=== PATIENT | male | born 1955 | race Two or more races ===

== ENCOUNTER 2021-07-08 12:58 | Inpatient (IN) | payer OTHER ==
[~2021-07-08] VITALS: Ht 175.3 cm; Wt 98.0 kg
[2021-07-08] MEDS ORDERED: INSLAN SQ (14:36)
[2021-07-08] MEDS ORDERED: CARV3 PO (14:36)
[2021-07-08] MEDS ORDERED: ALBU8HFA IH (14:36)
[2021-07-08] MEDS ORDERED: DULO30CA89 PO (14:36)
[2021-07-08] MEDS ORDERED: ISOS30TA92 PO (14:36)
[2021-07-08] MEDS ORDERED: LOPE2 PO (14:36)
[2021-07-08] MEDS ORDERED: NITR0.4T52 SL (14:36)
[2021-07-08] MEDS ORDERED: HYDR50CA9 PO (14:36)
[2021-07-08] MEDS ORDERED: ACET-66 PO (14:36)
[2021-07-08] MEDS ORDERED: ASPI-1444 PO (14:36)
[2021-07-08] MEDS ORDERED: TRAZ-252 PO (14:36)
[2021-07-08] MEDS ORDERED: ATOR40TA28 PO (14:36)
[2021-07-08] MEDS ORDERED: CLOP75TA60 PO (14:36)
[2021-07-08] MEDS ORDERED: FLUO20CA36 PO (14:36)
[2021-07-08] MEDS ORDERED: OMEP20 PO (14:36)
[2021-07-08 15:01] LABS: BASOPHILS % (AUTO) 0.6 % (0.0-2.0); EOSINOPHILS % (AUTO) 0 % (1.0-6.0); HEMATOCRIT 43.7 % (41-53); HEMOGLOBIN 14.8 g/dL (13.5-17.5); LYMPHOCYTES # (AUTO) 0.9 K/uL (1.0-4.8); LYMPHOCYTES % (AUTO) 17.5 % (22.0-44.0); MEAN CORPUSCULAR HEMOGLOBIN 29.6 pg (26.0-34.0); MEAN CORPUSCULAR HGB CONC 33.9 G/dL (31.0-37.0); MEAN CORPUSCULAR VOLUME 88 fL (80-100); MONOCYTES # (AUTO) 0.6 K/uL (0.1-1.0); MONOCYTES % (AUTO) 11.3 % (2.0-9.0); NEUTROPHILS # (AUTO) 3.7 K/uL (1.8-7.7); NEUTROPHILS % (AUTO) 70.6 % (40.0-70.0); PLATELET COUNT (AUTO) 197 K/uL (150-450); RED CELL DISTRIBUTION WIDTH 13.7 % (11.5-14.5)
[2021-07-08 15:15] LABS: C-REACTIVE PROTEIN QUANT 0.06 mg/dL (0.00-0.30); CREATINE KINASE, TOTAL ONLY 62 U/L (39-308)
[2021-07-08] MEDS ORDERED: DEXAMETHASONE SOD PHOS 4 MG/ML 5 ML VIAL IVP ONE (15:15)
[2021-07-08] MEDS ORDERED: REMDESIVIR 200 MG in SODIUM CHLORIDE 0.9% 250 ML IV ONE (15:15)
[2021-07-08] MEDS ORDERED: ENOXAPARIN SODIUM 60 MG/0.6 ML PF SYRINGE SQ ONE (15:15)
[2021-07-08 15:17] LABS: B-TYPE NATRIURETIC PEPTIDE < 5 pg/mL (0-100)
[2021-07-08 15:18] LABS: ALBUMIN 3.7 g/dL (3.4-5.0); BILIRUBIN,TOTAL 0.4 mg/dL (0.1-1.0); CALCIUM, TOTAL 8.8 mg/dL (8.8-10.5); CREATININE 1.23 mg/dL (0.60-1.30); POTASSIUM 4.5 mmol/L (3.5-5.1); TOTAL PROTEIN, SERUM 8.2 g/dL (6.4-8.2)
[2021-07-08] MEDS ORDERED: ENOXAPARIN SODIUM 40 MG/0.4 ML PF SYRINGE SQ ONE (15:30)
[2021-07-08] MEDS ORDERED: DEXTROSE 50%-WATER 25 GM/50 ML SYRINGE IVP PRN ×2 (16:00→17:00)
[2021-07-08] MEDS ORDERED: INSULIN LISPRO 100 UNITS/ML SQ PRN (16:00)
[2021-07-08] MEDS ORDERED: INSULIN LISPRO 100 UNITS/ML SQ ONE (16:45)
[2021-07-08] MEDS ORDERED: ALBUTEROL SULFATE HFA 90 MCG/PUFF 8 GM INHALER IH PRN (17:00)
[2021-07-08] MEDS ORDERED: ONDANSETRON HCL 4 MG/2 ML VIAL IVP PRN (17:00)
[2021-07-08] MEDS ORDERED: ACETAMINOPHEN 325 MG TABLET PO PRN (17:00)
[2021-07-08] MEDS ORDERED: OxyCODONE HCL/ACETAMINOPHEN 5-325 MG TABLET PO PRN (17:00)
[2021-07-08] MEDS ORDERED: BENZONATATE 100 MG CAPSULE PO PRN (17:00)
[2021-07-08] MEDS ORDERED: SODIUM CHLORIDE 0.9% 1,000 ML IV ONE (17:00)
[2021-07-08 17:39] LABS: FERRITIN 157 ng/mL (26-388)
[2021-07-08 18:30] VITALS: BP 118/70
[2021-07-08] MEDS: INSULIN LISPRO 100 UNITS/ML SQ PRN ×2 (19:06→21:48)
[2021-07-08 20:42] VITALS: BP 121/68
[2021-07-08] MEDS ORDERED: INSULIN GLARGINE,HUM.REC.ANLOG 100 UNITS/ML SQ SCH (21:00)
[2021-07-08] MEDS: DOCUSATE SODIUM 100 MG CAPSULE PO SCH ×2 (21:00→21:44)
[2021-07-08] MEDS: FAMOTIDINE 20 MG TABLET PO SCH (21:44)
[2021-07-08] MEDS ORDERED: TraZODone HCL 50 MG TABLET PO ONE (23:30)
[2021-07-09] MEDS: HEPARIN SODIUM,PORCINE 5,000 UNITS/ML VIAL SQ SCH ×3 (00:20→16:22)
[2021-07-09 00:41] VITALS: BP 139/77
[2021-07-09 01:16] LABS: COVID AG,FIA SOURCE NASOPHARYNGEAL
[2021-07-09 04:23] VITALS: BP 129/92
[2021-07-09] MEDS: INSULIN LISPRO 100 UNITS/ML SQ PRN ×4 (05:58→21:46)
[2021-07-09 07:06] LABS: GLUCOMETER DEV NAME(LOC) 5S.2B; GLUCOSE,POINT OF CARE 376 MG/DL (70-110)
[2021-07-09 07:06] LABS: GLUCOMETER DEV NAME(LOC) 5S.2B; GLUCOSE,POINT OF CARE 284 MG/DL (70-110)
[2021-07-09 07:06] LABS: GLUCOMETER DEV NAME(LOC) 5S.2B; GLUCOSE,POINT OF CARE 381 MG/DL (70-110)
[2021-07-09 07:48] VITALS: BP 157/86
[2021-07-09] MEDS: DOCUSATE SODIUM 100 MG CAPSULE PO SCH ×2 (08:21→21:00)
[2021-07-09] MEDS: FAMOTIDINE 20 MG TABLET PO SCH ×2 (08:21→21:47)
[2021-07-09] MEDS: CLOPIDOGREL BISULFATE 75 MG TABLET PO SCH (08:21)
[2021-07-09] MEDS: ASPIRIN 81 MG CHEWABLE TABLET PO SCH (08:21)
[2021-07-09] MEDS: DEXAMETHASONE SOD PHOS 4 MG/ML VIAL IVP SCH (08:24)
[2021-07-09 09:22] LABS: ALANINE AMINOTRANSFERASE 30 U/L (12-78); ALBUMIN 3.3 g/dL (3.4-5.0); ALKALINE PHOSPHATASE 74 U/L (46-116); ANION GAP 10 mmol/L (8-16); ASPARTATE AMINOTRANSFERASE 21 U/L (15-37); BILIRUBIN,TOTAL 0.4 mg/dL (0.1-1.0); CALCIUM, TOTAL 8.5 mg/dL (8.8-10.5); CARBON DIOXIDE 24 mmol/L (22-29); CHLORIDE 98 mmol/L (98-107); CREATININE 0.96 mg/dL (0.60-1.30); GLOMERULAR FILTR. RATE CALC > 60 mL/min (>60); GLUCOSE,RANDOM 363 mg/dL (70-110); POTASSIUM 4.4 mmol/L (3.5-5.1); SODIUM SERUM 132 mmol/L (136-145); TOTAL PROTEIN, SERUM 7.3 g/dL (6.4-8.2); UREA NITROGEN, BLOOD 24 mg/dL (7-18)
[2021-07-09 11:04] VITALS: BP 139/72
[2021-07-09 15:07] VITALS: BP 169/94
[2021-07-09] MEDS ORDERED: REMDESIVIR 100 MG in SODIUM CHLORIDE 0.9% 250 ML IV SCH (16:00)
[2021-07-09] MEDS: REMDESIVIR 100 MG in SODIUM CHLORIDE 0.9% 250 ML IV SCH (17:44)
[2021-07-09 17:57] LABS: GLUCOMETER DEV NAME(LOC) 5S.2B; GLUCOSE,POINT OF CARE 348 MG/DL (70-110)
[2021-07-09 17:58] LABS: GLUCOMETER DEV NAME(LOC) 5S.2B; GLUCOSE,POINT OF CARE 311 MG/DL (70-110)
[2021-07-09 19:38] VITALS: BP 170/89
[2021-07-09] MEDS ORDERED: HydrOXYzine PAMOATE 50 MG CAPSULE PO PRN (21:00)
[2021-07-09] MEDS: INSULIN GLARGINE,HUM.REC.ANLOG 100 UNITS/ML SQ SCH (21:45)
[2021-07-09] MEDS: CARVEDILOL 3.125 MG TABLET PO SCH (21:47)
[2021-07-09] MEDS: ISOSORBIDE MONONITRATE 30 MG ER TABLET PO SCH (21:47)
[2021-07-09] MEDS: TraZODone HCL 100 MG TABLET PO SCH (22:14)
[2021-07-09] MEDS: DiphenhydrAMINE HCL 25 MG CAPSULE PO PRN (22:15)
[2021-07-10 04:07] VITALS: BP 116/78
[2021-07-10] MEDS: INSULIN LISPRO 100 UNITS/ML SQ PRN ×4 (06:26→20:14)
[2021-07-10 06:38] LABS: GLUCOMETER DEV NAME(LOC) 5S.2B; GLUCOSE,POINT OF CARE 367 MG/DL (70-110)
[2021-07-10 06:38] LABS: GLUCOMETER DEV NAME(LOC) 5S.2B; GLUCOSE,POINT OF CARE 295 MG/DL (70-110)
[2021-07-10 08:19] VITALS: BP 107/68
[2021-07-10] MEDS: ASPIRIN 81 MG CHEWABLE TABLET PO SCH (08:21)
[2021-07-10] MEDS: CARVEDILOL 3.125 MG TABLET PO SCH ×2 (08:22→20:16)
[2021-07-10] MEDS: DULoxetine HCL 30 MG CAPSULE PO SCH (08:23)
[2021-07-10] MEDS: CLOPIDOGREL BISULFATE 75 MG TABLET PO SCH (08:23)
[2021-07-10] MEDS: HEPARIN SODIUM,PORCINE 5,000 UNITS/ML VIAL SQ SCH ×3 (08:23→16:20)
[2021-07-10] MEDS: FAMOTIDINE 20 MG TABLET PO SCH ×2 (08:23→20:16)
[2021-07-10] MEDS: DEXAMETHASONE SOD PHOS 4 MG/ML VIAL IVP SCH (08:23)
[2021-07-10] MEDS: ISOSORBIDE MONONITRATE 30 MG ER TABLET PO SCH (08:23)
[2021-07-10] MEDS: DOCUSATE SODIUM 100 MG CAPSULE PO SCH ×2 (08:35→20:16)
[2021-07-10] MEDS ORDERED: INSULIN GLARGINE,HUM.REC.ANLOG 100 UNITS/ML SQ SCH (09:00)
[2021-07-10 11:33] VITALS: BP 110/53
[2021-07-10 12:28] LABS: GLUCOMETER DEV NAME(LOC) 5S.2B; GLUCOSE,POINT OF CARE 377 MG/DL (70-110)
[2021-07-10] MEDS: FLUoxetine HCL 10 MG CAPSULE PO SCH (12:28)
[2021-07-10 14:28] LABS: ALBUMIN 3.3 g/dL (3.4-5.0); BILIRUBIN,TOTAL 0.4 mg/dL (0.1-1.0); CALCIUM, TOTAL 8.9 mg/dL (8.8-10.5); CREATININE 1.22 mg/dL (0.60-1.30); POTASSIUM 5.2 mmol/L (3.5-5.1); TOTAL PROTEIN, SERUM 7.4 g/dL (6.4-8.2)
[2021-07-10] MEDS: REMDESIVIR 100 MG in SODIUM CHLORIDE 0.9% 250 ML IV SCH (18:03)
[2021-07-10 19:18] LABS: GLUCOMETER DEV NAME(LOC) 5S.2B; GLUCOSE,POINT OF CARE 346 MG/DL (70-110)
[2021-07-10 19:45] VITALS: BP 117/68
[2021-07-10] MEDS: INSULIN GLARGINE,HUM.REC.ANLOG 100 UNITS/ML SQ SCH (20:15)
[2021-07-10] MEDS: TraZODone HCL 100 MG TABLET PO SCH (20:16)
[2021-07-10] MEDS: DiphenhydrAMINE HCL 25 MG CAPSULE PO PRN (20:25)
[2021-07-10 23:31] VITALS: BP 116/60
[2021-07-11 03:43] LABS: GLUCOMETER DEV NAME(LOC) 5S.2B; GLUCOSE,POINT OF CARE 336 MG/DL (70-110)
[2021-07-11 04:25] VITALS: BP 125/72
[2021-07-11] MEDS: INSULIN LISPRO 100 UNITS/ML SQ PRN ×4 (06:03→22:23)
[2021-07-11 07:45] VITALS: BP 164/92
[2021-07-11] MEDS: DOCUSATE SODIUM 100 MG CAPSULE PO SCH ×2 (09:00→21:00)
[2021-07-11] MEDS ORDERED: INSULIN GLARGINE,HUM.REC.ANLOG 100 UNITS/ML SQ SCH ×2 (09:00→21:00)
[2021-07-11] MEDS: HEPARIN SODIUM,PORCINE 5,000 UNITS/ML VIAL SQ SCH ×4 (09:08→23:48)
[2021-07-11] MEDS: CARVEDILOL 3.125 MG TABLET PO SCH ×2 (09:09→22:15)
[2021-07-11] MEDS: ISOSORBIDE MONONITRATE 30 MG ER TABLET PO SCH (09:09)
[2021-07-11] MEDS: DEXAMETHASONE SOD PHOS 4 MG/ML VIAL IVP SCH (09:09)
[2021-07-11] MEDS: ASPIRIN 81 MG CHEWABLE TABLET PO SCH (09:09)
[2021-07-11] MEDS: FLUoxetine HCL 10 MG CAPSULE PO SCH (09:09)
[2021-07-11] MEDS: CLOPIDOGREL BISULFATE 75 MG TABLET PO SCH (09:10)
[2021-07-11] MEDS: FAMOTIDINE 20 MG TABLET PO SCH ×2 (09:10→22:16)
[2021-07-11] MEDS: DULoxetine HCL 30 MG CAPSULE PO SCH (09:10)
[2021-07-11 12:25] VITALS: BP 129/68
[2021-07-11 13:43] LABS: GLUCOMETER DEV NAME(LOC) 5N.1C; GLUCOSE,POINT OF CARE 301 MG/DL (70-110)
[2021-07-11 16:25] VITALS: BP 121/70
[2021-07-11 16:49] LABS: ANION GAP 6 mmol/L (8-16); CALCIUM, TOTAL 9.1 mg/dL (8.8-10.5); CARBON DIOXIDE 28 mmol/L (22-29); CHLORIDE 96 mmol/L (98-107); CREATININE 1.11 mg/dL (0.60-1.30); GLOMERULAR FILTR. RATE CALC > 60 mL/min (>60); GLUCOSE,RANDOM 325 mg/dL (70-110); POTASSIUM 4.8 mmol/L (3.5-5.1); SODIUM SERUM 130 mmol/L (136-145); UREA NITROGEN, BLOOD 24 mg/dL (7-18)
[2021-07-11 16:57] LABS: ALANINE AMINOTRANSFERASE 24 U/L (12-78); ALBUMIN 3.5 g/dL (3.4-5.0); ALKALINE PHOSPHATASE 62 U/L (46-116); ASPARTATE AMINOTRANSFERASE 28 U/L (15-37); BILIRUBIN,TOTAL 0.3 mg/dL (0.1-1.0); TOTAL PROTEIN, SERUM 7.8 g/dL (6.4-8.2)
[2021-07-11] MEDS: REMDESIVIR 100 MG in SODIUM CHLORIDE 0.9% 250 ML IV SCH (17:38)
[2021-07-11 19:14] LABS: GLUCOMETER DEV NAME(LOC) 5S.1; GLUCOSE,POINT OF CARE 349 MG/DL (70-110)
[2021-07-11 20:02] VITALS: BP 123/74
[2021-07-11] MEDS: TraZODone HCL 100 MG TABLET PO SCH (21:00)
[2021-07-12 00:52] VITALS: BP 131/70
[2021-07-12] MEDS: INSULIN LISPRO 100 UNITS/ML SQ PRN ×2 (06:03→12:33)
[2021-07-12] MEDS: DOCUSATE SODIUM 100 MG CAPSULE PO SCH (06:04)
[2021-07-12 06:10] VITALS: BP 133/85
[2021-07-12 06:34] LABS: ALANINE AMINOTRANSFERASE 31 U/L (12-78); ALBUMIN 3.6 g/dL (3.4-5.0); ALKALINE PHOSPHATASE 67 U/L (46-116); ANION GAP 9 mmol/L (8-16); BILIRUBIN,TOTAL 0.4 mg/dL (0.1-1.0); CALCIUM, TOTAL 8.8 mg/dL (8.8-10.5); CARBON DIOXIDE 27 mmol/L (22-29); CHLORIDE 97 mmol/L (98-107); CREATININE 0.96 mg/dL (0.60-1.30); GLOMERULAR FILTR. RATE CALC > 60 mL/min (>60); GLUCOSE,RANDOM 262 mg/dL (70-110); POTASSIUM 4.2 mmol/L (3.5-5.1); SODIUM SERUM 133 mmol/L (136-145); TOTAL PROTEIN, SERUM 7.9 g/dL (6.4-8.2); UREA NITROGEN, BLOOD 23 mg/dL (7-18)
[2021-07-12 07:03] LABS: ASPARTATE AMINOTRANSFERASE 15 U/L (15-37)
[2021-07-12 08:03] VITALS: BP 142/88
[2021-07-12 08:09] LABS: GLUCOMETER DEV NAME(LOC) 5S.1; GLUCOSE,POINT OF CARE 249 MG/DL (70-110)
[2021-07-12 08:09] LABS: GLUCOMETER DEV NAME(LOC) 5S.1; GLUCOSE,POINT OF CARE 332 MG/DL (70-110)
[2021-07-12] MEDS ORDERED: INSULIN GLARGINE,HUM.REC.ANLOG 100 UNITS/ML SQ SCH (09:00)
[2021-07-12] MEDS: CLOPIDOGREL BISULFATE 75 MG TABLET PO SCH (09:32)
[2021-07-12] MEDS: FAMOTIDINE 20 MG TABLET PO SCH (09:32)
[2021-07-12] MEDS: ASPIRIN 81 MG CHEWABLE TABLET PO SCH (09:32)
[2021-07-12] MEDS: ISOSORBIDE MONONITRATE 30 MG ER TABLET PO SCH (09:32)
[2021-07-12] MEDS: CARVEDILOL 3.125 MG TABLET PO SCH (09:32)
[2021-07-12] MEDS: DEXAMETHASONE SOD PHOS 4 MG/ML VIAL IVP SCH (09:32)
[2021-07-12] MEDS: FLUoxetine HCL 10 MG CAPSULE PO SCH (09:33)
[2021-07-12] MEDS: HEPARIN SODIUM,PORCINE 5,000 UNITS/ML VIAL SQ SCH ×2 (09:33→16:19)
[2021-07-12 11:24] VITALS: BP 136/77
[2021-07-12] MEDS: DULoxetine HCL 30 MG CAPSULE PO SCH (11:54)
[2021-07-12] MEDS: REMDESIVIR 100 MG in SODIUM CHLORIDE 0.9% 250 ML IV SCH (14:51)
[2021-07-12 17:43] LABS: GLUCOMETER DEV NAME(LOC) 5S.1; GLUCOSE,POINT OF CARE 324 MG/DL (70-110)
== END 2021-07-12 18:25 | disposition left against medical advice (07) | DRG 177 ==
LOC: EMS 13:00 → 5N 16:25
PROVIDERS: ADMIT Internal Medicine; ATTEND Internal Medicine
PROC: XW033E5 Introduction of Remdesivir Anti-infective into Peripheral Vein, Percutaneous Approach, New Technology Group 5 (ICD-10-PCS; principal; 2021-07-08)
DX: U07.1 COVID-19 (principal); J12.82 Pneumonia due to coronavirus disease 2019; J96.01 Acute respiratory failure with hypoxia; J44.0 Chronic obstructive pulmonary disease with (acute) lower respiratory infection; E87.1 Hypo-osmolality and hyponatremia; I25.10 Atherosclerotic heart disease of native coronary artery without angina pectoris; I11.0 Hypertensive heart disease with heart failure; E78.5 Hyperlipidemia, unspecified; F32.9 Major depressive disorder, single episode, unspecified; Z53.29 Procedure and treatment not carried out because of patient's decision for other reasons; I50.9 Heart failure, unspecified; F15.90 Other stimulant use, unspecified, uncomplicated; E11.65 Type 2 diabetes mellitus with hyperglycemia; E66.9 Obesity, unspecified; Z79.4 Long term (current) use of insulin; Z87.891 Personal history of nicotine dependence; Z91.19 Patient's noncompliance with other medical treatment and regimen; I25.2 Old myocardial infarction; Z95.5 Presence of coronary angioplasty implant and graft; Z68.31 Body mass index [BMI] 31.0-31.9, adult
CPT/HCPCS: 71045; 80053; 82550; 82728; 82962; 83880; 84484; 85025; 85379; 85651; 86140; 87081; 93005; 93306; 99285; J1100; J1644; J1650; J1815; J7030; J7050; Q9967; 36415-L1; 36415-TC; U0003